=== PATIENT | female | born 1970 | race Two or more races ===

== ENCOUNTER 2021-04-30 11:54 | Emergency (ER) | payer BC ==
[~2021-04-30] VITALS: Ht 165.1 cm; Wt 87.1 kg
[2021-04-30] MEDS ORDERED: AMLODIPINE BESYL5 MG PO (12:11)
[2021-04-30] MEDS ORDERED: VISTARIL50 MG PO (16:09)
== END 2021-04-30 16:25 | disposition home or self-care (01) ==
LOC: ER 11:54
DX: I16.0 Hypertensive urgency (principal); I10 Essential (primary) hypertension; F41.8 Other specified anxiety disorders